=== PATIENT | female | born 1990 | race Caucasian/White ===

== ENCOUNTER 2016-06-22 18:56 | Inpatient (IN) | payer OTHER ==
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
--- NOTE | ~2016-06-22 | DS ---
Unit #: [id number] #: [id number] Patient: GLENIS PELLETIER [id number] [place] [address] [id number] MR#: [id number] NAME: GLENIS PELLETIER ROOM: [facility] Age: 25 Sex: F Admission Date: 06/22/2016 : 1990 Discharge Date: 06/24/2016 Attending Physician: Amaury Cartagena M.D. Primary Care Physician: Generic Doctor Not In System DISCHARGE SUMMARY REASON FOR ADMISSION Glenis is a 25-year-old woman, who came in for a jail house recovery, reporting auditory hallucinations, depression, and suicidal ideation. She was unable to contract for safety and was admitted for stabilization. DIAGNOSTIC STUDIES LABORATORY RESULTS: Laboratory studies were within normal limits. HOSPITAL COURSE The patient was admitted and placed on suicide and psychosis precautions. Seroquel was provided for insomnia and psychosis. She did not appear to have any psychotic symptoms after admission, and tended to participate only briefly in unit groups and activities. The patient and her family stated that she needed a "long-term care facility for dual diagnosis treatment," but unfortunately we were unable to locate such a facility in the [place]. There were concerns that the patient would proceed to a program, where she was not allowed to take psychiatric medications, and the family was involved with her discharge planning. On the date of discharge, she contracted for safety and was discharged in stable condition. 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 AXIS II: No diagnosis. AXIS III: Graves disease, hypertension, and asthma. AXIS IV: AXIS V: DISCHARGE INSTRUCTIONS The patient will follow up with chemical dependence program as identified by her family and with her primary care physician. DISCHARGE MEDICATIONS None were provided at the patient's request. She was continued on Inderal 10 mg twice daily for cardiomyopathy, Mobic 7.5 mg daily for pain, Singulair 10 mg daily for asthma, Proventil inhaler 2 puffs every 4 hours as needed for shortness of air, Flonase nasal spray twice daily for asthma, and Synthroid mcg daily for Graves disease. CONDITION AT DISCHARGE Fair. Unit #: [id number] #: [id number] Patient: GLENIS PELLETIER PROGNOSIS Fair. DIET Per primary care physician. ACTIVITY Per primary care physician. Dictated by... Govind Saini/dulce TD: 08/16/2016 12:01 JOB #: [id number] DISCHARGE SUMMARY Page 1 of 1 X Amaury Cartagena MD X DISCHARGE SUMMARY
--- NOTE | ~2016-06-22 | HP ---
Unit #: [id number] #: [id number] Patient: GLENIS PELLETIER [id number] [facility] [address] [place] [address] [id number] I MR#: [id number] NAME: GLENIS PELLETIER ROOM: [facility] Age: 25 Sex: F Admission Date: 06/22/2016 : 1990 Attending Physician: Amaury Cartagena M.D. Admitting Physician: Amaury Cartagena M.D. Primary Care Physician: Generic Doctor Not In System HISTORY AND PHYSICAL HISTORY OF PRESENT ILLNESS Glenis is a 25 year old admitted to [facility] reporting auditory hallucinations. She is currently in Recovery House and is clean from IV methamphetamines for 7 months. She denies relapse. PAST MEDICAL HISTORY 1. History of illicit substance abuse to include IV meth. She reports she has been clean for 7 months. 2. History of Grave's disease. a. Total thyroidectomy. 3. History of cervical dysplasia. a. LEEP procedure. 4. History of anemia. PAST SURGICAL HISTORY As above. ALLERGIES Cipro, sulfa. SOCIAL HISTORY She denies cigarettes, alcohol. Admits to a history of illicit drug use but has been clean for 7 months. FAMILY HISTORY Medically noncontributory. REVIEW OF SYSTEMS CONSTITUTIONAL: No fever or chills. HEENT: Denies any sore throat, ear pain or runny nose. CARDIOVASCULAR: Denies chest pain, irregular heart rhythm or palpitations. CHEST: Denies shortness of breath or cough. No hemoptysis. GASTROINTESTINAL: Denies nausea, vomiting, diarrhea or chronic constipation. ENDOCRINE: Denies history of increased thirst or urination. No recent significant weight loss or gain. GENITOURINARY: Denies dysuria, frequency, or hematuria. SKIN: Denies any rashes. HEMATOLOGIC: Denies history of increased bleeding or bruising. MUSCULOSKELETAL: Denies any hot, swollen joints. No generalized muscle pain. NEUROLOGIC: Denies problems with vision or speech. No frequent, severe headaches. No numbness, tingling or weakness in any extremities. Denies Unit #: [id number] #: [id number] Patient: GLENIS PELLETIER loss of bladder or bowel control. CURRENT MEDICATIONS 1. Seroquel 200 mg q.h.s. 2. Haldol 5 mg q. 4 hours p.r.n. 3. Milk of Magnesia p.r.n. 4. Maalox p.r.n. 5. Tylenol p.r.n. 6. Proventil inhaler p.r.n. 7. Flonase nasal spray b.i.d. 8. Propranolol 10 mg b.i.d. 9. Synthroid 0.15 mg daily. 10. Mobic 7.5 mg daily. PHYSICAL EXAMINATION GENERAL: Alert, well-nourished, in no apparent distress. VITAL SIGNS: Blood pressure 110/56, heart rate 80, respirations 16, temperature 98.6. WEIGHT: 138. HEIGHT: 5 feet 3 inches. SKIN: Warm and dry without rash or lesion. HEENT: Normocephalic. TMs not viewed. Oral and nasal passages clear. Conjunctivae clear. PERRLA. EOMs intact. NECK: Supple without lymphadenopathy or thyromegaly. HEART: Regular rate and rhythm without murmur. LUNGS: Clear. ABDOMEN: Soft, nontender. : Not done. EXTREMITIES: No evidence of cyanosis, clubbing or edema. Moves all without focal deficit. NEUROLOGICAL: Grossly within normal limits. Cranial Nerves: II: Visual diana are intact. III, IV AND : Extraocular movements are intact. Pupils are equal, round and reactive to light. V: Facial sensation is grossly normal. VII: Facial movements and expression are normal. VIII: Auditory acuity grossly intact. IX, X: Uvula is midline. Phonation is normal. XI: Patient shrugs shoulders and turns head normally. XII: Tongue protrudes in the midline. Sensory and Motor Function: Sensory and motor sensation is grossly normal. Motor: moves all extremities well. Coordination: Gait is normal. Deep Tendon Reflexes: Intact. IMPRESSION Psychiatric admission. RECOMMENDATIONS PSYCHIATRIC: Per psychiatrist. MEDICAL: See no contraindication to participate in facility's activities. MEDICAL PROGNOSIS Good. MEDICAL CONDITION Stable. Unit #: [id number] #: [id number] Patient: GLENIS PELLETIER Dictated by... Lo Gil P.A.-C. for Govind Solares/nikhil TD: 06/23/2016 18:50 JOB #: [id number] HISTORY AND PHYSICAL Page 1 of 1 X Lo Gil HISTORY AND PHYSICAL
[2016-06-23 09:33] LABS: BASOPHIL% 0.3 % (0-2.5); EOSINOPHIL# 0.2 X10e3 (0-0.7); EOSINOPHIL% 4.4 % (0.0-7.0); HEMATOCRIT 36.9 % (35.0-45.0); HEMOGLOBIN 12.2 gm/dL (12.0-16.0); LYMPHOCYTE# 1.3 X10e3 (1.0-3.5); LYMPHOCYTE% 24.7 % (17.0-45.0); MEAN CELL VOLUME 82.9 FL (83-96); MEAN CORPUSCULAR HEMOGLOBIN 27.4 PG (28-34); MEAN CORPUSCULAR HGB CONC 33.1 g/dL (30-36); MEAN PLATELET VOLUME 8.3 FL (6.5-11.5); MONOCYTE# 0.6 X10e3 (0-1.0); MONOCYTE% 11.5 % (3.0-12.0); NEUTROPHIL% 59.1 % (40-75); PLATELET COUNT 161 X10e3 (140-420); RED BLOOD COUNT 4.46 X10e (3.90-5.30); RED CELL DISTRIBUTION WIDTH 13.5 % (11.0-15.5); WHITE BLOOD COUNT 5.1 X10e3 (4.0-10.5)
[2016-06-23 09:41] LABS: DIFF IND NO
[2016-06-23 10:22] LABS: ALBUMIN SERUM 4.1 g/dL (3.5-5.0); BILIRUBIN,TOTAL 1.1 mg/dL (0.2-2.0); CALCIUM SERUM 8.7 mg/dL (8.4-10.2); CREATININE SERUM 0.6 mg/dL (0.6-1.4); GLOM FILT RATE Estimated 125.8 mL/min (>60); PROTEIN TOTAL SERUM 6.6 g/dL (6.0-8.3)
== END 2016-06-24 12:00 | DRG 885 ==
LOC: P1E 18:56
PROVIDERS: Psychiatry & Neurology Psychiatry
DX: F29 Unspecified psychosis not due to a substance or known physiological condition (principal); R45.851 Suicidal ideations; I10 Essential (primary) hypertension; Z88.2 Allergy status to sulfonamides; J45.909 Unspecified asthma, uncomplicated; E05.00 Thyrotoxicosis with diffuse goiter without thyrotoxic crisis or storm; F31.9 Bipolar disorder, unspecified; G89.29 Other chronic pain
CPT/HCPCS: 80053; 84443; 84703; 85025